=== PATIENT | male | born 1980 | race Caucasian/White ===

== ENCOUNTER 2020-09-27 02:09 | Emergency (ER) | payer OTHER ==
[~2020-09-27 02:09] MED LIST: IBUPROFEN600 MG PO; MEDROL DOSEPAK 24 MG PO; NORFLEX 100 MG100 MG PO; Voltaren Gel 1% TOP
[2020-09-27] MEDS ORDERED: ACYCLOVIR800 MG PO (04:00)
[2020-09-27] MEDS ORDERED: TORADOL 10 MG T10 MG PO (04:00)
== END 2020-09-27 04:11 | disposition home or self-care (01) ==
LOC: ER1 02:09
DX: R51.9 Headache, unspecified (principal); B02.9 Zoster without complications; J44.9 Chronic obstructive pulmonary disease, unspecified; F17.210 Nicotine dependence, cigarettes, uncomplicated
CPT/HCPCS: 99283

== ENCOUNTER → 2020-10-26 | Outpatient (CLI) | payer OTHER ==
[~2020-10-26] MED LIST changes: +ACYCLOVIR800 MG PO; +TORADOL 10 MG T10 MG PO
== END ==
LOC: KOH-I 12:26
DX: R22.42 Localized swelling, mass and lump, left lower limb (principal)
CPT/HCPCS: 93971

== ENCOUNTER 2021-01-01 13:07 | Emergency (ER) | payer OTHER ==
[2021-01-01] MEDS ORDERED: CORTISPORIN-TC10 M1 OU (15:46)
== END 2021-01-01 15:54 | disposition home or self-care (01) ==
LOC: ER1 13:07
DX: S00.462A Insect bite (nonvenomous) of left ear, initial encounter (principal); W57.XXXA Bitten or stung by nonvenomous insect and other nonvenomous arthropods, initial encounter
CPT/HCPCS: 99282

== ENCOUNTER 2021-12-23 09:38 | Emergency (ER) | payer OTHER ==
[~2021-12-23 09:38] MED LIST changes: +CORTISPORIN-TC10 M1 OU
[2021-12-23 10:27] LABS: HEMOGLOBIN 15.7 gm/dl (14.0-17.5); RED BLOOD COUNT 5.1 M/UL (4.20-5.50); WHITE BLOOD COUNT 6.6 K/UL (4.5-11.0)
[2021-12-23] MEDS ORDERED: ASPIRIN CHEWABL81 MG PO (12:05)
== END 2021-12-23 14:35 | disposition home or self-care (01) ==
LOC: ER1 09:38
PROVIDERS: Emergency Medicine
DX: U07.1 COVID-19 (principal); R20.0 Anesthesia of skin; F17.200 Nicotine dependence, unspecified, uncomplicated
CPT/HCPCS: 0240U; 70450; 71045; 80053; 85025; 85379; 93005; 96361; 96374; 99284; J2405; Q9967